=== PATIENT | male | born 1990 | race African-American/Black ===

== ENCOUNTER 2018-05-13 04:51 | Emergency (ER) | payer MEDICAID ==
[~2018-05-13] VITALS: Ht 172.7 cm; Wt 63.0 kg
[2018-05-13 05:00] VITALS: Ht 172.7 cm; Wt 63.0 kg
[2018-05-13 08:13] VITALS: BP 116/69
== END 2018-05-13 08:13 | disposition home or self-care (01) ==
LOC: ED 04:51
DX: S01.111A Laceration without foreign body of right eyelid and periocular area, initial encounter (principal); S05.31XA Ocular laceration without prolapse or loss of intraocular tissue, right eye, initial encounter; Z88.0 Allergy status to penicillin; W26.8XXA Contact with other sharp object(s), not elsewhere classified, initial encounter; Y93.89 Activity, other specified; Y92.89 Other specified places as the place of occurrence of the external cause; Y99.8 Other external cause status
CPT/HCPCS: 90715; J2001

== ENCOUNTER 2018-05-18 12:40 | Emergency (ER) | payer MEDICAID ==
[~2018-05-18] VITALS: Ht 172.7 cm; Wt 60.3 kg
[2018-05-18 12:45] VITALS: BP 123/69; Ht 172.7 cm; Wt 60.3 kg
== END 2018-05-18 13:15 | disposition home or self-care (01) ==
LOC: ED 12:40
DX: S01.111D Laceration without foreign body of right eyelid and periocular area, subsequent encounter (principal); Z88.0 Allergy status to penicillin; X58.XXXD Exposure to other specified factors, subsequent encounter